=== PATIENT | male | born 1960 | race Caucasian/White ===

== ENCOUNTER 2018-02-14 15:30 | Emergency (ER) | payer OTHER ==
[2018-02-14 16:51] VITALS: BP 141/88
--- NOTE | 2018-02-14 17:52 | UC ---
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 - History of Current Complaint Chief Complaint: [facility] Time Seen by Provider: 02/14/18 17:29 Stated Complaint: RASH Hx Obtained From: Patient Onset/Duration: Lasting Days Skin Exposure Onset/Duration: Days Ago Onset Severity: Moderate Current Severity: Moderate Pain Intensity: 4 - Allergy/Home Medications Allergies/Adverse Reactions: Allergies Allergy/AdvReac Type Severity Reaction Status Date / Time No Known Allergies Allergy Verified 02/14/18 16:51 Home Medications: Home Medications Escitalopram Oxalate [Lexapro 10 mg] 10 mg PO DAILY 02/14/18 [History Confirmed 02/14/18] Simvastatin TAB(NF) [Zocor 20 MG (NF)] 40 mg PO DAILY 02/14/18 [History Confirmed 02/14/18] Review of Systems Constitutional: Negative Skin: Other - increased skin sensitivity on right lower back Eyes: Negative ENT: Negative Respiratory: Negative Cardiovascular: Negative Gastrointestinal: Negative Genitourinary: Negative Motor: Negative Neurovascular: Negative Musculoskeletal: Negative Neurological: Negative Psychological: Negative All Other Systems Reviewed And Are Negative: Yes PMH/Surg Hx/FS Hx/Imm Hx - Surgical History Surgical History: Yes Surgery Procedure, Year, and Place: VASECTOMY - Social History Alcohol Use: Weekly Alcohol Amount: 2 DRINKS/WEEK Substance Use Type: None Smoking Status (MU): Never Smoked Tobacco Physical Exam Triage Information Reviewed: Yes Appearance: Well-Appearing, No Pain Distress Vital Signs: Initial Vital Signs Temp 36.3 C 02/14/18 16:45 Pulse 70 02/14/18 16:45 Resp 16 02/14/18 16:45 BP 141/88 02/14/18 16:45 Pulse Ox 97 02/14/18 16:45 Eye Exam: Normal ENT: Positive: Normal ENT inspection Neck exam: Normal Respiratory Exam: Normal Cardiovascular Exam: Normal Abdominal Exam: Normal Abdomen Description: Positive: Nontender Musculoskeletal Exam: Normal Psychological Exam: Normal Skin: Positive: significant lesion(s) - significan right parspinal hyperesthesia and small 3x4mm erythematous skin lesion on right paraspinal skin surface, not vesicular Course/Dx - Course Course Of Treatment: early shingles as it is starting with neuropathy w/o mahin vesicular eruption - Diagnoses Provider Diagnoses: Early shingles. elevated BP in acute illness Discharge - Sign-Out/Discharge Documenting (check all that apply): Discharge/Admit/Transfer - Discharge Plan Condition: Stable Disposition: HOME Prescriptions: ValACYclovir (*) [Valtrex 1 GM(*)] 1 gm PO TID #21 tab Patient Education Materials: Shingles (ED) Referrals: No Primary Care Phys,NOPCP [Primary Care Provider] - - Billing Disposition and Condition Condition: STABLE Disposition: HOME
== END 2018-02-14 17:51 | disposition home or self-care (01) ==
LOC: UCEAST 15:30
DX: B02.9 Zoster without complications (principal); R03.0 Elevated blood-pressure reading, without diagnosis of hypertension
CPT/HCPCS: 99202; G0463